=== PATIENT | male | born 1945 | race Caucasian/White ===

== ENCOUNTER 2018-10-11 02:55 | Emergency (ER) | payer MEDICARE ==
[~2018-10-11 02:55] MED LIST: MULT-1192 PO
[2018-10-11 03:23] LABS: APPEARANCE,URINE Clear (CLEAR); BILIRUBIN,URINE Negative (NEGATIVE); COLOR,URINE Yellow (YELLOW); GLUCOSE, URINE (UA) Negative (NEGATIVE); KETONES,URINE Negative (NEGATIVE); LEUKOCYTE ESTERASE ,URINE Large (NEGATIVE); NITRATE,URINE Negative (NEGATIVE); OCCULT BLOOD,URINE Negative (NEGATIVE); PH,URINE 5.5 (5.0-8.0); PROTEIN,URINE Negative (NEGATIVE); UROBILINOGEN,URINE 0.2 mg/dL (0.2-1.0)
[2018-10-11] MEDS ORDERED: KETOROLAC TROMETHAMINE 15MG/ML ONE (03:26)
[2018-10-11 03:37] LABS: BACTERIA,URINE None Seen /HPF (None Seen); RBC,URINE None Seen /HPF (0-1); SQUAMOUS EPITHELIAL CELL,UR Rare /HPF (0-2)
[2018-10-11 03:43] LABS: BASOPHILS % (AUTO) 0.8 % (0.0-5.0); EOSINOPHILS % (AUTO) 0.6 % (0.0-8.0); HEMATOCRIT 45.9 % (42-54); LYMPHOCYTES % (AUTO) 13.2 % (21.0-51.0); MEAN CORPUSCULAR HEMOGLOBIN 33.4 pg (27.0-33.0); MEAN CORPUSCULAR HGB CONC 35.7 g/dL (32.0-36.0); MEAN CORPUSCULAR VOLUME 93.7 fL (79-99); MONOCYTES % (AUTO) 7.8 % (3.0-13.0); NEUTROPHILS % (AUTO) 77.6 % (40.0-77.0); PLATELET COUNT (AUTO) 150 K/uL (130-400); RED BLOOD CELL COUNT(AUTO) 4.89 MIL/uL (4.50-6.20); RED CELL DISTRIBUTION WIDTH 14.6 % (11.0-15.5); WHITE BLOOD COUNT (AUTO) 11.1 K/uL (4.8-10.8)
[2018-10-11 03:51] LABS: CREATININE 0.9 mg/dL (0.5-1.5); POTASSIUM 3.9 mmol/L (3.5-5.1)
[2018-10-11 03:55] LABS: ALBUMIN 3.8 g/dL (3.5-5.0); BILIRUBIN,TOTAL 1.1 mg/dL (0.2-1.0); TOTAL PROTEIN, SERUM 6.7 g/dL (6.0-8.3)
[2018-10-11] MEDS ORDERED: DICYCLOMINE HCL 10 MG/ML 2ML AMP IM ONE (05:10)
[2018-10-11] MEDS ORDERED: MAGNESIUM CITRATE 296 ML SOLUTION ONE (05:37)
== END 2018-10-11 07:53 | disposition home or self-care (01) ==
LOC: EDH 02:55
DX: R10.9 Unspecified abdominal pain (principal); K59.00 Constipation, unspecified; Z87.891 Personal history of nicotine dependence
CPT/HCPCS: 36415; 74176; 80053; 81001; 83690; 85025; 96372; 96374; 99285; J0500; J1885

== ENCOUNTER 2019-03-14 04:30 | Emergency (ER) | payer MEDICARE ==
[2019-03-14 05:00] LABS: APPEARANCE,URINE Clear (CLEAR); BILIRUBIN,URINE Negative (NEGATIVE); COLOR,URINE Yellow (YELLOW); GLUCOSE, URINE (UA) Negative (NEGATIVE); KETONES,URINE Negative (NEGATIVE); LEUKOCYTE ESTERASE ,URINE Negative (NEGATIVE); NITRATE,URINE Negative (NEGATIVE); OCCULT BLOOD,URINE Moderate (NEGATIVE); PROTEIN,URINE Negative (NEGATIVE); UROBILINOGEN,URINE 0.2 mg/dL (0.2-1.0)
[2019-03-14] MEDS ORDERED: SODIUM CHLORIDE 0.9% 1000ML 1,000 ML IV ONE (05:03)
[2019-03-14 05:10] LABS: EOSINOPHILS % (AUTO) 0.7 % (0.0-8.0); HEMATOCRIT 46.7 % (42-54); LYMPHOCYTES % (AUTO) 14.7 % (21.0-51.0); MEAN CORPUSCULAR HGB CONC 35.2 g/dL (32.0-36.0); MEAN CORPUSCULAR VOLUME 96.6 fL (79-99); MONOCYTES % (AUTO) 10.5 % (3.0-13.0); NEUTROPHILS % (AUTO) 73.1 % (40.0-77.0); PLATELET COUNT (AUTO) 201 K/uL (130-400); RED BLOOD CELL COUNT(AUTO) 4.83 MIL/uL (4.50-6.20); RED CELL DISTRIBUTION WIDTH 13.6 % (11.0-15.5); WHITE BLOOD COUNT (AUTO) 7.7 K/uL (4.8-10.8)
[2019-03-14 05:17] LABS: CREATININE 0.9 mg/dL (0.5-1.5); POTASSIUM 3.6 mmol/L (3.5-5.1)
[2019-03-14 05:20] LABS: INR 0.97 (0.85-1.15); PROTHROMBIN TIME 10.2 SEC (9.6-11.6)
[2019-03-14 05:23] LABS: ALBUMIN 3.9 g/dL (3.5-5.0); BILIRUBIN,TOTAL 1.2 mg/dL (0.2-1.0); TOTAL PROTEIN, SERUM 7.4 g/dL (6.0-8.3)
[2019-03-14 05:42] LABS: BACTERIA,URINE Rare /HPF (None Seen); SQUAMOUS EPITHELIAL CELL,UR 0-2 /HPF (0-2); WBC,URINE 0-1 /HPF (0-1)
[2019-03-14] MEDS ORDERED: TAMSULOSIN HCL 0.4 MG CAP.ER.24H ONE (05:46)
== END 2019-03-14 06:42 | disposition home or self-care (01) ==
LOC: EDH 04:30
DX: R33.9 Retention of urine, unspecified (principal); R10.9 Unspecified abdominal pain; Z87.891 Personal history of nicotine dependence
CPT/HCPCS: 36415; 51702; 80053; 81001; 82550; 83605; 83690; 85025; 85610; 85730; 87088; 99281; 99285; J7030

== ENCOUNTER 2019-03-14 13:49 | Emergency (ER) | payer MEDICARE | END 2019-03-14 14:44 | disposition home or self-care (01) | LOC: EDH 13:49 | DX: T83.098A Other mechanical complication of other urinary catheter, initial encounter (principal); Y84.8 Other medical procedures as the cause of abnormal reaction of the patient, or of later complication, without mention of misadventure at the time of the procedure; Y92.89 Other specified places as the place of occurrence of the external cause | CPT/HCPCS: 99281 ==

== ENCOUNTER 2019-03-16 23:26 | Emergency (ER) | payer MEDICARE | END 2019-03-17 00:27 | disposition home or self-care (01) | LOC: EDH 23:26 | DX: T83.038A Leakage of other urinary catheter, initial encounter (principal); Y84.8 Other medical procedures as the cause of abnormal reaction of the patient, or of later complication, without mention of misadventure at the time of the procedure; Y92.89 Other specified places as the place of occurrence of the external cause | CPT/HCPCS: 99281 ==

== ENCOUNTER 2019-03-21 04:55 | Emergency (ER) | payer MEDICARE ==
[~2019-03-21] VITALS: Ht 180.3 cm; Wt 95.2 kg
[2019-03-21 05:22] LABS: APPEARANCE,URINE Turbid (CLEAR); BILIRUBIN,URINE Negative (NEGATIVE); COLOR,URINE Yellow (YELLOW); GLUCOSE, URINE (UA) Negative (NEGATIVE); KETONES,URINE Negative (NEGATIVE); LEUKOCYTE ESTERASE ,URINE Large (NEGATIVE); NITRATE,URINE Positive (NEGATIVE); OCCULT BLOOD,URINE Large (NEGATIVE); PROTEIN,URINE POS 2+ mg/dL (NEGATIVE)
[2019-03-21 05:27] LABS: BACTERIA,URINE Many /HPF (None Seen); WBC,URINE TNTC /HPF (0-1)
[2019-03-21] MEDS ORDERED: CEFTRIAXONE SODIUM 1 GM ONE (05:39)
[2019-03-21] MEDS ORDERED: HYDROCODONE/ACETAMINOPHEN 10/325 MG TAB ONE (05:39)
[2019-03-21] MEDS ORDERED: LIDOCAINE HCL-MPF 1% 2ML VIAL ONE (05:39)
[2019-03-21] MEDS ORDERED: LEVOFLOXACIN 750 MG/D5W 150 ML 150 ML ONE (06:10)
[2019-03-21] MEDS ORDERED: MORPHINE SULFATE 4 MG/1ML SYG ONE (06:10)
[2019-03-21] MEDS ORDERED: ONDANSETRON HCL 4 MG/2 ML VIAL ONE (06:10)
[2019-03-21 06:21] LABS: BASOPHILS % (AUTO) 0.7 % (0.0-5.0); EOSINOPHILS % (AUTO) 0.6 % (0.0-8.0); HEMATOCRIT 44.5 % (42-54); LYMPHOCYTES % (AUTO) 9.5 % (21.0-51.0); MEAN CORPUSCULAR HEMOGLOBIN 33.6 pg (27.0-33.0); MEAN CORPUSCULAR HGB CONC 34.4 g/dL (32.0-36.0); MEAN CORPUSCULAR VOLUME 97.5 fL (79-99); MONOCYTES % (AUTO) 9.9 % (3.0-13.0); NEUTROPHILS % (AUTO) 79.3 % (40.0-77.0); PLATELET COUNT (AUTO) 182 K/uL (130-400); RED BLOOD CELL COUNT(AUTO) 4.57 MIL/uL (4.50-6.20); RED CELL DISTRIBUTION WIDTH 13.5 % (11.0-15.5); WHITE BLOOD COUNT (AUTO) 13.9 K/uL (4.8-10.8)
[2019-03-21 06:53] LABS: INR 1.01 (0.85-1.15); PARTIAL THROMBOPLASTIN TIME 28.5 SEC (26.3-35.5); PROTHROMBIN TIME 10.6 SEC (9.6-11.6)
[2019-03-21 07:03] LABS: CREATININE 1.1 mg/dL (0.5-1.5); POTASSIUM 4.1 mmol/L (3.5-5.1)
[2019-03-21 07:09] LABS: ALBUMIN 3.6 g/dL (3.5-5.0); BILIRUBIN,TOTAL 2.1 mg/dL (0.2-1.0); TOTAL PROTEIN, SERUM 6.9 g/dL (6.0-8.3)
[2019-03-21] MEDS ORDERED: SODIUM CHLORIDE 0.9% 1000ML 1,000 ML IV SCH (12:16)
[2019-03-21] MEDS ORDERED: POTASSIUM CHLORIDE 20MEQ/100ML 100 ML IV PRN (12:30)
[2019-03-21] MEDS ORDERED: IPRATROPIUM 0.5 MG/2.5 ML INH IH PRN (12:30)
[2019-03-21] MEDS ORDERED: POTASSIUM CHLORIDE 20 MEQ ERTAB PO PRN (12:30)
[2019-03-21] MEDS ORDERED: POTASSIUM CHLORIDE 10% ELIXIR 20 MEQ/15 ML UDCUP PO PRN (12:30)
[2019-03-21] MEDS ORDERED: FAMOTIDINE 20MG TAB 20 MG TAB PO SCH (21:00)
[2019-03-22] MEDS ORDERED: CEFTRIAXONE SODIUM 2 GM VIAL IVP SCH (05:00)
== END 2019-03-21 15:02 | disposition home or self-care (01) ==
LOC: EDH 04:55 → UNDOADMOB 09:50 → EDHIP 09:50
DX: N39.0 Urinary tract infection, site not specified (principal); R33.9 Retention of urine, unspecified; Z98.890 Other specified postprocedural states
CPT/HCPCS: 36415; 51702; 80053; 81001; 83605; 84145; 85025; 85610; 85730; 87040 ×2; 87077 ×2; 87088 ×2; 87186 ×2; 93005; 94664; 96365; 96366; 96372; 96375; 99285; J0696; J1956; J2270; J2405; J3490

== ENCOUNTER → 2019-04-05 | Outpatient (CLI) | payer MEDICARE | END | disposition home or self-care (01) | LOC: RAH 08:53 | PROVIDERS: ATTEND Urology | DX: N40.0 Benign prostatic hyperplasia without lower urinary tract symptoms (principal); N20.0 Calculus of kidney; R31.0 Gross hematuria; K57.30 Diverticulosis of large intestine without perforation or abscess without bleeding; M47.816 Spondylosis without myelopathy or radiculopathy, lumbar region | CPT/HCPCS: 74176 ==